=== PATIENT | male | born 1985 | race Caucasian/White ===

== ENCOUNTER 2017-01-29 18:36 | Emergency (ER) | payer SELFPAY ==
[2017-01-29 19:16] VITALS: BP 123/67; RESP 19; TEMP 98.2; O2SAT 100
--- NOTE | 2017-01-29 19:31 | ED PDOC ---
- ECG O2 Sat by Pulse Oximetry: 100
--- NOTE | 2017-01-29 19:42 | ED PDOC ---
HPI: Psych/Substance Abuse Time Seen by Provider: 01/29/17 19:12 Chief Complaint (Nursing): Anxiety Chief Complaint (Provider): Anxiety History Per: Patient History/Exam Limitations: no limitations Onset/Duration Of Symptoms: Days Current Symptoms Are (Timing): Still Present Suicide/Self Injury Attempted (Context): None Modifying Factor(s): None Severity: Moderate Associated Symptoms: Anxiety, Depression. denies: Suicidal Thoughts Involuntary Hold By: None Additional Complaint(s): Patient is a 31 year old male who presents to ED for evaluation of increased depression and anxiety for 1 month. Patient states he was prescribed Ativan and Lexapro by PMD but admits to not taking his Ativan today. Denies SI, HI or hallucinations. Notes he misses his which is the cause of his depression. Past Medical History Reviewed: Historical Data, Nursing Documentation, Vital Signs Vital Signs: Last Vital Signs Temp 98.2 F 01/29/17 19:11 Pulse 87 01/29/17 19:11 Resp 19 01/29/17 19:11 BP 123/67 01/29/17 19:11 Pulse Ox 100 01/29/17 19:11 - Medical History PMH: No Chronic Diseases - Surgical History Surgical History: No Surg Hx - Family History Family History: States: No Known Family Hx - Living Arrangements Living Arrangements: With Family - Allergies Allergies/Adverse Reactions: Allergies Allergy/AdvReac Type Severity Reaction Status Date / Time No Known Allergies Allergy Verified 01/29/17 19:16 Review of Systems ROS Statement: Except As Marked, All Systems Reviewed And Found Negative Cardiovascular: Negative for: Chest Pain, Palpitations Respiratory: Negative for: Shortness of Breath Gastrointestinal: Negative for: Nausea, Vomiting Neurological: Negative for: Weakness Psych: Positive for: Anxiety, Depression Physical Exam - Reviewed Nursing Documentation Reviewed: Yes Vital Signs Reviewed: Yes - Physical Exam Appears: Positive for: Non-toxic (tearful), No Acute Distress Skin: Positive for: Normal Color, Warm Eye Exam: Positive for: Normal appearance Neck: Positive for: Normal, Painless ROM Cardiovascular/Chest: Positive for: Regular Rate, Rhythm. Negative for: Murmur Respiratory: Positive for: Normal Breath Sounds. Negative for: Respiratory Distress Back: Positive for: Normal Inspection Extremity: Positive for: Normal ROM Neurologic/Psych: Positive for: Alert, Oriented, Mood/Affect (Very anxious, tearful). Negative for: Motor/Sensory Deficits - ECG ECG: Positive for: Interpreted By Me ECG Rhythm: Positive for: Normal QRS, Normal ST Segment, Sinus Rhythm. Negative for: ST/T Changes Rate: 60 O2 Sat by Pulse Oximetry: 100 (RA) Pulse Ox Interpretation: Normal - Progress ED Course And Treament: 2100 On re-evaluation, pt. calm and cooperative. Pt. reports good relief of anxiety. Pending crisis evaluation. Denies SI/HI, hallucinations. Pt evaluated by crisis, Nneka who spoke with psychiatrist and cleared pt. for discharge. Medical Decision Making Medical Decision Making: Time: 1914 Initial Impression: Psychiatric eval Initial Plan: -- EKG -- UDS -- Crisis -- Ativan IM Scribe Attestation: Documented by Dania Orellana, acting as a scribe for Vahid Franklin PA-C. Provider Scribe Attestation: All medical record entries made by the Scribe were at my direction and personally dictated by me. I have reviewed the chart and agree that the record accurately reflects my personal performance of the history, physical exam, medical decision making, and the department course for this patient. I have also personally directed, reviewed, and agree with the discharge instructions and disposition. Disposition - Clinical Impression Clinical Impression: Anxiety - Patient ED Disposition Is Patient to be Admitted: No - Disposition Disposition: Routine/Home Disposition Time: 22:43 Condition: IMPROVED Additional Instructions: Follow up with you psychiatrist tomorrow without fail. Instructions: Anxiety (ED)
[2017-01-29 19:45] VITALS: PULSE 60
--- NOTE | 2017-01-30 09:25 | CARD ---
APPROVED REPORT EKG Measurement Heart [id number] <Conclusion> Normal sinus rhythm Rightward axis Incomplete right bundle branch block Borderline ECG
== END 2017-01-29 22:56 | disposition home or self-care (01) ==
LOC: H.ER 18:36
DX: F41.9 Anxiety disorder, unspecified (principal); F32.0 Major depressive disorder, single episode, mild; I45.10 Unspecified right bundle-branch block
CPT/HCPCS: 93005; 96372; 99281; G0480; J2060